=== PATIENT | female | born 1960 | race Caucasian/White ===

== ENCOUNTER 2019-01-28 16:26 | Emergency (ER) | payer OTHER ==
[~2019-01-28] VITALS: Ht 167.6 cm; Wt 83.0 kg
[2019-01-28] MEDS ORDERED: [UNRECOGNIZED DRUG - OTHER] (16:43)
[2019-01-28] MEDS ORDERED: URIN D.S. TABL1 EACH PO (23:17)
== END 2019-01-29 00:23 | disposition home or self-care (01) ==
LOC: ER 16:26
DX: R82.99 Other abnormal findings in urine (principal); R10.31 Right lower quadrant pain